=== PATIENT | male | born 1955 | race Caucasian/White ===

== ENCOUNTER 2023-12-28 19:14 | Emergency (ER) | payer BC, OTHER ==
[2023-12-28] MEDS: Lidocaine 1% with EPINEPHrine 1:100,000 20 ML MDV ONE (20:00)
[2023-12-28] MEDS: Lidocaine 1% with EPINEPHrine 1:100,000 20 ML MDV INJECT ONE (20:00)
== END 2023-12-28 20:30 | disposition home or self-care (01) ==
LOC: KA.ED 19:14
DX: S51.012A Laceration without foreign body of left elbow, initial encounter (principal); Z88.2 Allergy status to sulfonamides; Z88.8 Allergy status to other drugs, medicaments and biological substances; W22.8XXA Striking against or struck by other objects, initial encounter
CPT/HCPCS: 12002; 99282; 99283; J3490